=== PATIENT | female | born 1945 | race Caucasian/White ===

== ENCOUNTER 2024-03-30 16:07 | Emergency (ER) | payer MEDICARE, SELFPAY ==
--- NOTE | ~2024-03-30 | XR_ITS ---
EXAMINATION: XR chest 2V Exam Date/Time: 03/30/2024 16:35 CDT HISTORY: cp WITH INTERMITTENT EPIGASTRIC PAIN Comparison: 03/02/2016. RESULT: Lines, tubes, and devices: Surgical clips over the left chest. Rim calcified soft tissue lesion over the right axilla, likely will cyst. Lungs and pleura: Clear. Stable right lung granuloma. Bilateral diaphragm eventration. Cardiomediastinal silhouette: Unremarkable. Other: Curvilinear gas collection under the left hemidiaphragm. No acute osseous finding. IMPRESSION: No acute cardiopulmonary process. Curvilinear gas collection under the left hemidiaphragm, likely representing gastric gas outlining ga stric contents/bezoar, although extraluminal gas could appear similarly. Consider CT of the abdomen a nd pelvis with contrast for further evaluation Reviewed, dictated and finalized at location K. IMPRESSION: No acute cardiopulmonary process. Curvilinear gas collection under the left hemidiaphragm, likely representing ga stric gas outlining gastric contents/bezoar, although extraluminal gas could ap pear similarly. Consider CT of the abdomen and pelvis with contrast for further evaluation
--- NOTE | 2024-03-30 16:09 | ECG_ITS ---
Test Date: 2024-03-30 16:15:30 Measurements Intervals [place] Rate: 70 P: 34 NE: 196 QRS: 32 QRSD: 81 T: 52 QT: 384 QTc: 416 Interpretive Statements SINUS RHYTHM MINIMAL ST DEPRESSION- ANTEROLAT/HIGH LAT LEADS BASELINE ARTIFACT- I, II, III, AVR, AVL, AVF BORDERLINE ECG No previous ECG available for comparison Electronically Signed On 03-30-2024 16:21:17 CDT by Chencho Amaro D.O.
[2024-03-30 16:16] VITALS: BP 150/63; PULSE 76; RESP 16; TEMP 36.8; O2SAT 100
--- NOTE | 2024-03-30 16:22 | ED.CHESTPAIN ---
HPI - Chest Pain General Chief Complaint: Chest Pain <Kirsty Hodge PA-C - Last Filed: 03/30/24 16:23> Stated Complaint: chest pain <Kirsty Hodge PA-C - Last Filed: 03/30/24 16:23> Time Seen by Provider: 03/30/24 20:00 <Kirsty Hodge PA-C - Last Filed: 03/30/24 16:23> Focused HPI: 78-year-old female with history of hypertension and breast cancer s/p radiation and chemotherapy presents to the emergency department for left-sided chest pain that has been intermittent for several years. Patient states she was evaluated by light truck driver 7 years ago that was unremarkable. She then saw her PCP in July who obtaining negative EKG. She states today around 11:00 a.m. she had a COVID emergency? in her chest pain began. She states it is located in the left chest wall her breast she describes it as sharp. It is nonradiating, not associated with nausea vomiting, lightheadedness or syncope, dyspnea, exertional symptoms, radiating symptoms, abdominal pain. She states she has noticed the pain occurs when she is anxious and stressed but also has occurred when she is not anxious and stressed. GENERAL: Anxious-appearing, well-nourished, and in no acute distress. HEAD: Normocephalic, atraumatic. CHEST: Clear to auscultation. ?No respiratory distress. HEART: Regular rate and rhythm.? NEURO: ?Alert and oriented x3. Patient screened in triage and initial orders placed.? ?Additional care and disposition to be based upon?diagnostic testing and treatment. <Kirsty Hodge PA-C - Last Filed: 03/30/24 16:23> Focused HPI: 78-year-old female with history of hypertension and breast cancer s/p radiation and chemotherapy presents to the emergency department for left-sided chest pain that has been intermittent for several years. Patient states she was evaluated by light truck driver 7 years ago that was unremarkable. She then saw her PCP in July who obtaining negative EKG. She states today around 11:00 a.m. she had a COVID emergency? in her chest pain began. She states it is located in the left chest wall her breast she describes it as sharp. It is nonradiating, not associated with nausea vomiting, lightheadedness or syncope, dyspnea, exertional symptoms, radiating symptoms, abdominal pain. She states she has noticed the pain occurs when she is anxious and stressed but also has occurred when she is not anxious and stressed. GENERAL: Anxious-appearing, well-nourished, and in no acute distress. HEAD: Normocephalic, atraumatic. CHEST: Clear to auscultation. ?No respiratory distress. HEART: Regular rate and rhythm.? NEURO: ?Alert and oriented x3. Patient screened in triage and initial orders placed.? ?Additional care and disposition to be based upon?diagnostic testing and treatment. <CEDRIC Vidales Last Filed: 03/31/24 03:29> Source: patient <CEDRIC Vidales Last Filed: 03/31/24 03:29> Mode of arrival: ambulatory <CEDIRC Vidales Last Filed: 03/31/24 03:29> Limitations: no limitations <CEDRIC Vidales Last Filed: 03/31/24 03:29> History of Present Illness HPI narrative: Agree with above HPI. Reports patient has had several stressors in her life recently but have precipitated this chest pain. States pain today was slightly more severe than it is usually. Denies current pain. <CEDRIC Vidales Last Filed: 03/31/24 03:29> Related Data Allergies/Adverse Reactions: Allergies Allergy/AdvReac Type Severity Reaction Status Date / Time Sulfa (Sulfonamide Allergy Intermediate Verified 03/02/16 03:33 Antibiotics) <CEDRIC Spivey Last Filed: 03/30/24 16:23> Review of Systems Review of Systems: All systems reviewed & are unremarkable except as noted in HPI. <CEDRIC Vidales Last Filed: 03/31/24 03:29> All systems reviewed & are unremarkable except as noted in HPI and below <GABRIELLA Vidales
[2024-03-30 16:37] LABS: Basophils Percent Auto 0.4 % (0.2-1.2); Eosinophils Absolute Auto 0.1 K/mm3 (0-0.3); Eosinophils Percent Auto 1.1 % (0-4.4); Hematocrit 40.7 % (37.0-47.0); Hemoglobin 14.1 g/dL (12.0-15.0); Immature Granulocyte Absolute 0.01 K/mm3 (0.00-0.031); Immature Granulocyte Percent A 0.2 % (0-0.5); Lymphocytes Absolute Auto 1.91 K/mm3 (0.9-3.2); Lymphocytes Percent Auto 34.9 % (18.3-44.2); Mean Corpuscular HGB Conc 34.6 g/dl (32-36); Mean Corpuscular Hemoglobin 33.8 pg (26-34); Mean Corpuscular Volume 97.6 fl (80-100); Mean Platelet Volume 10.5 fl (7.4-10.4); Monocytes Absolute Auto 0.6 K/mm3 (0.1-0.6); Monocytes Percent Auto 11.7 % (2.6-8.5); Neutrophils Absolute Auto 2.8 K/mm3 (1.3-6.7); Neutrophils Percent Auto 51.7 % (45.5-73.1); Platelet Count Result 207 k/mm3 (150-375); Red Blood Count 4.17 M/mm3 (4.2-5.4); Red Cell Distribution Width 13.1 % (11.5-14.5); White Blood Count 5.5 K/mm3 (4.5-10.0)
[2024-03-30 16:45] LABS: Prothrombin Time 13.2 Seconds (11.1-14.7)
[2024-03-30 16:46] LABS: Partial Thromboplastin Time 26.8 Seconds (22.3-36.8)
[2024-03-30 17:06] LABS: Alanine Aminotransferase 27 U/L (6-35); Albumin Level 4.3 g/dL (3.5-5.1); Alkaline Phosphatase 77 U/L (38-126); Anion Gap 12 mmol/L (4-12); Aspartate Amino Transferase 46 U/L (14-36); Bilirubin,Total 0.4 mg/dL (0.2-1.3); Blood Urea Nitrogen 23 mg/dL (7-17); Calcium 9.5 mg/dL (8.4-10.2); Carbon Dioxide 28 mmol/L (22-30); Chloride 101 mmol/L (98-107); Estimated CRCL calculation 27 ml/min; Estimated Glomerular Filt Rate 40; Glucose 115 mg/dL (65-110); Lipase 148 U/L (23-300); Potassium 3.4 mmol/L (3.4-5.0); Sodium 141 mmol/L (137-145)
[2024-03-30 17:30] LABS: Troponin I < 0.012 ng/mL (0.000-0.034)
--- NOTE | 2024-03-30 19:07 | ECG_ITS ---
Test Date: 2024-03-30 19:07:50 Measurements Intervals [place] Rate: 66 P: 31 CA: 184 QRS: 11 QRSD: 80 T: 28 QT: 410 QTc: 431 Interpretive Statements SINUS RHYTHM MINIMAL ST DEPRESSION- ANTEROLAT/HIGH LAT LEADS BASELINE ARTIFACT- I, II, III, AVR, AVL, AVF BORDERLINE ECG Compared to ECG 03/30/2024 16:15:30 NO SIGNIFICANT CHANGE Electronically Signed On 03-31-2024 10:04:17 CDT by Chencho Amaro D.O.
[2024-03-30 19:35] VITALS: BP 159/68; PULSE 69; RESP 18; TEMP 36.6; O2SAT 100
[2024-03-30 19:36] LABS: Troponin I < 0.012 ng/mL (0.000-0.034)
[2024-03-30 20:03] VITALS: O2SAT 98
== END 2024-03-30 23:00 | disposition home or self-care (01) ==
PROVIDERS: Student in an Organized Health Care Education/Training Program; Emergency Provider Physician Assistant; PCP Internal Medicine
DX: R07.89 Other chest pain (principal); I10 Essential (primary) hypertension; Z85.3 Personal history of malignant neoplasm of breast; Z92.3 Personal history of irradiation; Z92.21 Personal history of antineoplastic chemotherapy; R94.31 Abnormal electrocardiogram [ECG] [EKG]
CPT/HCPCS: 36415; 71046; 80053; 83690; 84484; 85025; 85610; 85730; 93005; 99284